=== PATIENT | female | born 1960 | race Caucasian/White ===

== ENCOUNTER 2020-01-21 15:18 | Outpatient (CLI) | payer OTHER, SELFPAY ==
--- NOTE | ~2020-01-21 | XR_ITS ---
EXAMINATION: XR thoracic spine 2V EXAM DATE: 01/21/2020 15:55 INDICATION: Left lateral costochondral junction pain radiating to the back. TECHNIQUE: Frontal and lateral projections of the thoracic spine as well as lateral swimmers projecti on of the upper thoracic spine for interpretation. There is no prior study for comparison. FINDINGS: There is moderate thoracolumbar dextroscoliosis. Mild thoracic disc disease. The vertebra l bodies are aligned in the AP dimension. Vertebral body heights are maintained. No endplate erosive change. Paraspinal soft tissue is unremarkable. IMPRESSION: 1. Mild thoracic spondylosis. 2. Moderate thoracolumbar dextroscoliosis. Reviewed, dictated and finalized at location A.
--- NOTE | ~2020-01-21 | XR_ITS ---
EXAMINATION: XR chest 2V EXAM DATE: 01/21/2020 15:56 INDICATION: Left costochondral junction pain. TECHNIQUE: Frontal and lateral projections of the chest obtained and reviewed. There are no prior maria t dies for comparison. FINDINGS: The lungs are clear. There are no pleural effusions. The cardiomediastinal silhouette is within normal limits. There is no pneumothorax suspected. The bones and soft tissues are unremarkab le. Moderate thoracolumbar dextroscoliosis. The ribs are unremarkable. IMPRESSION: No acute cardiopulmonary findings. Reviewed, dictated and finalized at location A.
== END 2020-01-21 15:19 | disposition home or self-care (01) ==
LOC: ANHIMG 15:26
PROVIDERS: PCP Internal Medicine; Visit Provider Internal Medicine
DX: M94.0 Chondrocostal junction syndrome [Tietze] (principal); M47.814 Spondylosis without myelopathy or radiculopathy, thoracic region; M41.85 Other forms of scoliosis, thoracolumbar region
CPT/HCPCS: 71046; 72070

== ENCOUNTER 2020-01-26 14:29 | Outpatient (CLI) | payer OTHER, SELFPAY ==
--- NOTE | ~2020-01-26 | CT_ITS ---
EXAMINATION: CT lung screening EXAM DATE: 01/26/2020 14:55 INDICATION: Personal history of nicotine dependence. TECHNIQUE: Spiral low dose CT of the chest without contrast. Axial, coronal and sagittal images were reviewed. The dose-length product (DLP) for this examination was 97.25 mGy-cm. The exposure was ta ilored according to patient size (auto mA exposure control), and iterative reconstruction (ASIR) was used as additional dose reduction technique. Comparison is made to prior examination from 02/20/2018. FINDINGS: The lungs are clear. There is mild emphysema. Tracheobronchial tree is patent. There is no mediastinal, hilar or axillary lymphadenopathy. There are no pleural or pericardial effusions. There is no pneumothorax. Heart normal in size. There is mild coronary arterial calcification, a rterial sclerosis. Left liver lobe cyst. There is mild thoracic spondylosis without osteoblastic or osteolytic lesions identified. IMPRESSION: Lung-RADS category 1, negative (<1%chance of malignancy); recommend continued LDCT screen ing in 1 year. Reviewed, dictated and finalized at location A. IMPRESSION: Lung-RADS category 1, negative (<1%chance of malignancy); recommend continued LDCT screening in 1 year.
== END 2020-01-26 14:30 | disposition home or self-care (01) ==
PROVIDERS: PCP Internal Medicine; Visit Provider Internal Medicine
DX: Z12.2 Encounter for screening for malignant neoplasm of respiratory organs (principal); Z87.891 Personal history of nicotine dependence
CPT/HCPCS: G0297

== ENCOUNTER 2020-02-04 12:08 | Outpatient (CLI) | payer OTHER, SELFPAY ==
--- NOTE | ~2020-02-04 | MR_ITS ---
EXAMINATION: MR thoracic spine wo con EXAM DATE: 02/04/2020 13:03 INDICATION: Radicular thoracic pain. TECHNIQUE: Multi-sequential, multiplanar MR images of the thoracic spine were obtained without contra st. Sagittal T1, T2, T2 fat saturation, axial T2 weighted images reviewed. There is no prior study for comparison. FINDINGS: Thoracolumbar dextroscoliosis. There is mild mid and lower thoracic disc disease with mild loss of disc heights and some small Schmorl's nodes. Some small disc protrusions, but only contributi ng to mild central canal stenosis at the T10-11 level. There is mild upper lumbar, moderate mid and l ower lumbar facet arthropathy. The vertebral bodies are aligned in the AP dimension. Paraspinal soft tissue is unremarkable. There are no suspicious marrow signal abnormalities. There is mild right-sided neural foraminal stenosis at mid thoracic levels. Lower thoracic levels described below. T9-10: Moderate right, no left neural foraminal stenosis. T10-11: Moderate right, mild left neural foraminal stenosis. Mild central canal stenosis. T11-12: No stenosis. IMPRESSION: 1. Moderate right neural foraminal stenosis T9-10 and T10-11. 2. Moderate lower lumbar facet arthropathy. 3. Lesser spondylosis above. Reviewed, dictated and finalized at location A.
== END 2020-02-04 12:09 | disposition home or self-care (01) ==
PROVIDERS: PCP Internal Medicine; Visit Provider Internal Medicine
DX: M54.6 Pain in thoracic spine (principal); M48.04 Spinal stenosis, thoracic region; M12.88 Other specific arthropathies, not elsewhere classified, other specified site; M47.816 Spondylosis without myelopathy or radiculopathy, lumbar region
CPT/HCPCS: 72146

== ENCOUNTER 2020-08-16 14:15 | Outpatient (CLI) | payer OTHER, SELFPAY ==
--- NOTE | ~2020-08-16 | MM_ITS ---
EXAMINATION: MM screening [facility] BI w jane HISTORY: Screening mammogram TECHNIQUE: Craniocaudal and mediolateral oblique 3-D tomosynthesis images were obtained and synthetic 2-D images were generated. CAD analysis was submitted and interpreted. COMPARISON: 06/27/2019, 07/05/2018, 06/28/2017 bilateral digital screening mammogram examinations BREAST PARENCHYMAL COMPOSITION: There are scattered areas of fibroglandular density. FINDINGS: There are scattered bilateral benign calcifications. There is no evidence of suspicious m ass, calcification, or architectural distortion to suggest malignancy in either breast. There has bee n no suspicious interval change. IMPRESSION: 1. No mammographic evidence of malignancy. 2. Recommend routine screening mammography in one year. BI-RADS Category 2: Benign finding(s) Reviewed, dictated and finalized at location A. 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
--- NOTE | ~2020-08-16 | DEXA_ITS ---
Bone Density Report Name: Kenyatta Siddiqui Age: 60 Sex: Female Ethnicity: White Date of : 1960 Indication: postmenopausal; Referring Provider: JOSE RIVERA Study: Bone densitometry was performed. Exam Date: August 16, 2020 Accession number: [id number] Bone Density: Region BMD T-score Z-score Classification AP Spine (L1-L4) 1.161 1.0 2.5 Normal Femoral Neck (Left) 0.768 -0.7 0.5 Normal Total Hip (Left) 0.990 0.4 1.3 Normal Total Hip Bilateral Avg 0.973 0.3 1.2 Normal Femoral Neck (Right) 0.696 -1.4 -0.1 Osteopenia Total Hip (Right) 0.956 0.1 1.1 Normal World Health Organization criteria for BMD impression classify patients as: Normal (T-score at or above -1.0), Osteopenia (T-score between -1.0 and -2.5), or Osteoporosis (T-score at or below -2.5). 10-year Fracture Risk(1): Major Osteoporotic Fracture 7.5% Hip Fracture 1.0% Reported Risk Factors: [place] (), Neck BMD=0.696, BMI=31.5, smoking (1) FRAX(R) Version 3.08. Fracture probability calculated for an untreated patient. Fracture probability may be lower if the patient has received treatment. Previous Exams: Region Exam Age BMD T-score BMD Change BMD Change Date g/cm2 vs Baseline vs Previous AP Spine(L1-L4) 08/16/2020 60 1.161 1.0 -0.052(-4.3%)# -0.005(-0.4%) 05/27/2015 54 1.166 1.1 -0.047(-3.9%)# -0.047(-3.9%)# 06/28/2011 50 1.213 1.5 Total Hip(Left) 08/16/2020 60 0.990 0.4 -0.126(-11.3%) -0.049(-4.7%)* 06/28/2017 56 1.039 0.8 -0.076(-6.9%)# -0.044(-4.0%)* 05/27/2015 54 1.083 1.2 -0.033(-2.9%)# -0.033(-2.9%)# 06/28/2011 50 1.115 1.4 Total Hip(Right) 08/16/2020 60 0.956 0.1 -0.073(-7.1%)# -0.030(-3.1%)* 06/28/2017 56 0.986 0.4 -0.042(-4.1%)# -0.007(-0.7%) 05/27/2015 54 0.993 0.4 -0.035(-3.4%)# -0.035(-3.4%)# 06/28/2011 50 1.029 0.7 *Denotes significance at 95% confidence level, LSC for AP Spine = 0.022 g/cm2, LSC for Total Hip = 0.027 g/cm2 Clinical Information Provided by Patient: Smokes Has used the following medications: Vitamin D, Calcium Patient maximum height was 62.5 Menopause Age: 57 Does not regularly consume dairy products Drinks caffeinated beverages Onset of menses at age 11 Number of children 2 Impression: There is hypertrophic degenerative change of the lumbar spine, which results in higher than expected spine bone mineral density measurements. These spine BMD a
== END 2020-08-16 14:16 | disposition home or self-care (01) ==
LOC: ANHIMG 14:18
PROVIDERS: PCP Internal Medicine; Visit Provider Obstetrics & Gynecology Gynecology
DX: Z12.31 Encounter for screening mammogram for malignant neoplasm of breast (principal); Z78.0 Asymptomatic menopausal state; M85.851 Other specified disorders of bone density and structure, right thigh
CPT/HCPCS: 77063; 77067; 77080

== ENCOUNTER 2021-04-22 16:02 | Outpatient (CLI) | payer OTHER, SELFPAY ==
--- NOTE | ~2021-04-22 | CT_ITS ---
EXAMINATION: CT lung screening DATE: 04/22/2021 16:33 INDICATION: Personal history of tobacco dependence, current smoker with 35 pack year history TECHNIQUE: Computed tomography (CT) of the chest was performed without intravenous contrast. The dose -length product (DLP) was 172.27 mGy-cm. 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 COMPARISON: 01/26/2020 FINDINGS: There is mild emphysema. No suspicious pulmonary nodules are identified. The lungs are free of acute opacities. There is no pleural effusion or pneumothorax. No pathologically enlarged thoraci c lymph nodes are identified. The heart size is normal. There is a trace pericardial effusion. Calcif ied coronary artery atherosclerosis is noted. There is moderate thoracic spondylosis. Cysts of the li shanika measure up to 13 mm in the left hepatic lobe. IMPRESSION: 1. Lung-RADS category 1: Negative. Continue annual screening with noncontrast low-dose chest CT in 12 months. Reviewed, dictated and finalized at location A. IMPRESSION: 1. Lung-RADS category 1: Negative. Continue annual screening with noncontrast l ow-dose chest CT in 12 months.
== END 2021-04-22 16:03 | disposition home or self-care (01) ==
PROVIDERS: PCP Internal Medicine; Visit Provider Internal Medicine
DX: Z12.2 Encounter for screening for malignant neoplasm of respiratory organs (principal); Z87.891 Personal history of nicotine dependence
CPT/HCPCS: 71271

== ENCOUNTER 2021-09-13 09:52 | Outpatient (CLI) | payer OTHER, SELFPAY ==
--- NOTE | ~2021-09-13 | MM_ITS ---
EXAMINATION: MM screening [facility] BI w jane HISTORY: Screening mammogram TECHNIQUE: Craniocaudal and mediolateral oblique 3-D tomosynthesis images were obtained and synthetic 2-D images were generated. CAD analysis was submitted and interpreted. COMPARISON: 08/16/2020, 07/07/2019, 07/05/2018 BREAST PARENCHYMAL COMPOSITION: There are scattered areas of fibroglandular density. FINDINGS: There is no evidence of suspicious mass, calcification, or architectural distortion to sugg est malignancy in either breast. There has been no suspicious interval change. IMPRESSION: 1. No mammographic evidence of malignancy. 2. Recommend routine screening mammography in one year. BI-RADS Category 1: Negative Reviewed, dictated and finalized at location A. 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
== END 2021-09-13 09:53 | disposition home or self-care (01) ==
LOC: ANHIMG 09:53
PROVIDERS: PCP Internal Medicine; Visit Provider Obstetrics & Gynecology Gynecology
DX: Z12.31 Encounter for screening mammogram for malignant neoplasm of breast (principal)
CPT/HCPCS: 77063; 77067

== ENCOUNTER 2022-12-01 13:16 | Emergency (ER) | payer OTHER, SELFPAY ==
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
[2022-12-01 13:31] VITALS: BP 145/81; PULSE 79; RESP 18; TEMP 37; O2SAT 100
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
== END 2022-12-01 14:23 | disposition home or self-care (01) ==
PROVIDERS: Emergency Provider Nurse Practitioner; PCP Internal Medicine
DX: S80.12XA Contusion of left lower leg, initial encounter (principal); S80.11XA Contusion of right lower leg, initial encounter; E78.5 Hyperlipidemia, unspecified; F17.290 Nicotine dependence, other tobacco product, uncomplicated; V89.2XXA Person injured in unspecified motor-vehicle accident, traffic, initial encounter
CPT/HCPCS: 73590; 99214; G0463

== ENCOUNTER 2022-12-10 13:23 | Outpatient (CLI) | payer OTHER, SELFPAY ==
--- NOTE | ~2022-12-10 | MR_ITS ---
MRI of the right hip Clinical history: Chronic pain Technique: Coronal T1-weighted, T2-weighted, and proton-density fat-sat images, and axial T1-weighted and proton-density fat-sat images were acquired through the pelvis. Coronal T2-weighted images and c oronal, axial, and sagittal proton-density fat-sat images were acquired through the right hip. Findings: There is no fracture, avascular necrosis, or transient osteoporosis of either hip. Bone mar row signals in the proximal femora and visualized pelvic bones are unremarkable. There is partially i sergio dextroscoliosis of the lumbar spine. Bilateral hip and bilateral SI joints are intact. No significant degenerative change identified. No j oint effusion. No right acetabular labral tear identified. Visualized musculature about the pelvis and right hip is unremarkable. No muscle atrophy or edema tanvi ntified. There is probable minimal greater trochanteric bursitis on the right side. No other fluid co llection or mass lesion evident. IMPRESSION: Minimal right greater trochanteric bursitis. Partially imaged dextroscoliosis of the lumbar spine. No other significant findings. Reviewed, dictated and finalized at location .
== END 2022-12-10 13:24 | disposition home or self-care (01) ==
PROVIDERS: PCP Internal Medicine; Visit Provider Internal Medicine
DX: M25.551 Pain in right hip (principal)
CPT/HCPCS: 73721

== ENCOUNTER 2023-01-22 08:54 | Outpatient (CLI) | payer OTHER, SELFPAY ==
--- NOTE | ~2023-01-22 | MM_ITS ---
EXAMINATION: MM screening contra [facility] BI w jane HISTORY: Screening mammogram TECHNIQUE: Craniocaudal and mediolateral oblique 3-D tomosynthesis images were obtained and synthetic 2-D images were generated. CAD analysis was submitted and interpreted. COMPARISON: 09/13/2021, 08/16/2020 BREAST PARENCHYMAL COMPOSITION: There are scattered areas of fibroglandular density. FINDINGS: A chronic stable focal asymmetry is present in left breast. No suspicious mass, calcificati on, or architectural distortion are identified in either breast to suggest malignancy. There has been no suspicious interval change. IMPRESSION: 1. No mammographic evidence of malignancy. 2. Recommend routine screening mammography in one year. BI-RADS Category 2: Benign finding(s). Reviewed, dictated and finalized at location A.
== END 2023-01-22 08:55 | disposition home or self-care (01) ==
LOC: ANHIMG 08:55
PROVIDERS: PCP Internal Medicine; Visit Provider Internal Medicine
DX: Z12.31 Encounter for screening mammogram for malignant neoplasm of breast (principal)
CPT/HCPCS: 77063; 77067

== ENCOUNTER 2023-03-16 00:34 | Day surgery (SDC) | payer OTHER, SELFPAY ==
[2023-03-08 09:42] VITALS: BMI 31.6
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
[2023-03-16 07:41] VITALS: BP 130/72; PULSE 64; RESP 20; TEMP 36.3; O2SAT 99; BMI 31.8
[2023-03-16] MEDS: LACTATED RINGERS 1,000 ML 150 ML IV CONT (07:48)
[2023-03-16 08:34] VITALS: BP 110/70; PULSE 73; RESP 14; O2SAT 100
[2023-03-16 08:44] VITALS: BP 123/54; PULSE 58; RESP 16; O2SAT 100
[2023-03-16 08:54] VITALS: BP 113/48; PULSE 62; RESP 18; O2SAT 100
== END 2023-03-16 09:05 | disposition home or self-care (01) ==
PROVIDERS: PCP Internal Medicine; Visit Provider Internal Medicine Gastroenterology
PROC: 0DJD8ZZ Inspection of Lower Intestinal Tract, Via Natural or Artificial Opening Endoscopic (ICD-10-PCS; CPT 45378; principal; 2023-03-16 08:30)
DX: Z12.11 Encounter for screening for malignant neoplasm of colon (principal); Z98.0 Intestinal bypass and anastomosis status; Z86.010 Personal history of colon polyps; Z90.49 Acquired absence of other specified parts of digestive tract; E78.5 Hyperlipidemia, unspecified; G47.33 Obstructive sleep apnea (adult) (pediatric); E55.9 Vitamin D deficiency, unspecified; F17.290 Nicotine dependence, other tobacco product, uncomplicated; E66.9 Obesity, unspecified; Z68.31 Body mass index [BMI] 31.0-31.9, adult
CPT/HCPCS: 45378; J2704; J7120

== ENCOUNTER 2023-09-18 10:18 | Outpatient (CLI) | payer OTHER, SELFPAY ==
--- NOTE | ~2023-09-18 | XR_ITS ---
EXAMINATION: XR lumbar spine 2-3V DATE: 09/18/2023 10:38 INDICATION: Left-sided low back pain. TECHNIQUE: 3 views of lumbar spine were obtained. COMPARISON: Lumbar spine radiographs 11/13/2014 FINDINGS: There is 22 degrees dextroscoliosis of thoracolumbar spine. There is 3 mm retrolisthesis of L2 on L3 and L3 on L4. There is mild chronic anterior wedging of L3 vertebral body. There is severel y decreased disc height from L1-L2 through L4-L5 and mildly decreased disc height at L5-S1. There is multilevel severe facet joint osteoarthritis. IMPRESSION: 1. Severe lumbar spondylosis, worsened from 11/13/2014. 2. Thoracolumbar dextroscoliosis. Reviewed, dictated and finalized at location E. [employer]
--- NOTE | ~2023-09-18 | XR_ITS ---
EXAMINATION: XR sacroiliac joints min 3V DATE: 09/18/2023 10:38 INDICATION: Left-sided low back pain. TECHNIQUE: 3 views of the sacroiliac joints were obtained. COMPARISON: None. FINDINGS: There is lumbar dextroscoliosis and severe spondylosis. No fracture. There is mild osteoart hritis of the sacroiliac joints and hip joints. IMPRESSION: 1. Mild osteoarthritis of the sacroiliac joints. Reviewed, dictated and finalized at location E. 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
== END 2023-09-18 10:19 | disposition home or self-care (01) ==
PROVIDERS: PCP Internal Medicine; Visit Provider Internal Medicine
DX: M54.9 Dorsalgia, unspecified (principal); M43.06 Spondylolysis, lumbar region; M41.85 Other forms of scoliosis, thoracolumbar region; M46.1 Sacroiliitis, not elsewhere classified
CPT/HCPCS: 72100; 72202

== ENCOUNTER 2023-12-18 13:32 | Outpatient (CLI) | payer OTHER, SELFPAY ==
--- NOTE | ~2023-12-18 | CT_ITS ---
EXAMINATION: CT lung screening DATE: 12/18/2023 13:53 INDICATION: Nicotine dependence TECHNIQUE: Computed tomography (CT) of the chest was performed without intravenous contrast. The dose -length product was 147.83 mGy-cm. Automated exposure control and iterative reconstruction technique were employed. COMPARISON: CT dated 04/22/2021 FINDINGS: Trace chronic pericardial effusion. No significant pleural effusion. Heart size normal. No thoracic adenopathy. Low-density lesions in the liver, most likely benign. The spleen, pancreas, adre nal glands are unremarkable. Nonobstructing left nephrolithiasis. No focal airspace consolidation. No endobronchial lesions. No new pulmonary nodules or masses. Moderate lower thoracic spondylosis. IMPRESSION: 1. Lung-RADS category 1: Negative. Continue annual screening with noncontrast low-dose chest CT in 12 months. Reviewed, dictated and finalized at location L. IMPRESSION: 1. Lung-RADS category 1: Negative. Continue annual screening with noncontrast l ow-dose chest CT in 12 months.
== END 2023-12-18 13:33 | disposition home or self-care (01) ==
PROVIDERS: PCP Internal Medicine; Visit Provider Internal Medicine
DX: Z12.2 Encounter for screening for malignant neoplasm of respiratory organs (principal); Z87.891 Personal history of nicotine dependence
CPT/HCPCS: 71271

== ENCOUNTER 2024-04-30 13:45 | Outpatient (CLI) | payer OTHER, SELFPAY ==
--- NOTE | ~2024-04-30 | MM_ITS ---
EXAMINATION: MM screening bartolo BI w jane HISTORY: Screening TECHNIQUE: Craniocaudal and mediolateral oblique 3-D tomosynthesis images were obtained and synthetic 2-D images were generated. CAD analysis was submitted and interpreted. COMPARISON: Comparison to multiple prior studies sequentially, with oldest reviewed study dated 01/2017. BREAST PARENCHYMAL COMPOSITION: Not dense: There are scattered areas of fibroglandular density. FINDINGS: There is no evidence of suspicious mass, calcification, or architectural distortion to sugg est malignancy in either breast. There has been no suspicious interval change. IMPRESSION: 1. No mammographic evidence of malignancy. 2. Recommend routine screening mammography in one year. BI-RADS Category 1: Negative Reviewed, dictated and finalized at location B.
== END 2024-04-30 13:46 | disposition home or self-care (01) ==
LOC: ANHIMG 13:46
PROVIDERS: PCP Internal Medicine; Visit Provider Internal Medicine
DX: Z12.31 Encounter for screening mammogram for malignant neoplasm of breast (principal)
CPT/HCPCS: 77063; 77067

== ENCOUNTER 2024-04-30 15:10 | Outpatient (CLI) | payer OTHER, SELFPAY ==
--- NOTE | ~2024-04-30 | XR_ITS ---
EXAMINATION: XR chest 2V 04/30/2024 15:25 INDICATION: Shortness of breath and dyspnea PROCEDURE: 2 view chest COMPARISON: 01/21/2020 FINDINGS: The lungs are clear. The cardiomediastinal silhouette is within normal limits. There are no pleural effusions. There is no pneumothorax suspected. There is scoliosis. IMPRESSION: 1: NO ACUTE CARDIOPULMONARY DISEASE. Reviewed, dictated and finalized at location B.
== END 2024-04-30 15:11 | disposition home or self-care (01) ==
LOC: ANHIMG 15:11
PROVIDERS: PCP Internal Medicine; Visit Provider Internal Medicine
DX: R06.02 Shortness of breath (principal); R06.09 Other forms of dyspnea
CPT/HCPCS: 71046; 77063; 77067

== ENCOUNTER 2024-05-07 08:58 | Outpatient (CLI) | payer OTHER, SELFPAY ==
--- NOTE | 2024-05-13 14:08 | P.PCNPFT_ITS ---
PFT Procedure Performed PFT Procedure Performed Spirometry with Pre/Post Bronchodilator Plethysmography (Lung Vol) Diffusing Cap (DLCO) Flow Vol Loop PFT Interpretation DOS: 05/07/2024 REQUESTING: Dr. Martin Urbina REASON FOR TESTING: dyspnea PULMONARY FUNCTION TESTS Results are reliable and reproducible. Repeatability of spirometry FEV1 maneuver pre and post bronchodilator is Grade A. Spirometry: The pre-bronchodilator FEV1 is 1.92 L, 88%, normal. The pre- bronchodilator FVC is 3.12 L, 113%, normal. The FEV1/FVC ratio is 61%, decreased, consistent with airflow obstruction. After bronchodilator, the FEV1 is 2.13 L, 98%, +11%, normal. The FVC post-bronchodilator is 3.24 L, 117%, +4%, normal. The FEV1/FVC ratio is 66%, below normal, consistent with airflow obstruction. Lung volumes: The total lung capacity is 4.96 L, 108%, normal. The residual volume is 1.84 L, 97%, normal. The RV/TLC is 37%, normal. Airway resistance is increased. Diffusion: DLCO is 19.1, 95%, normal. The DLCO/VA is 4.29 L, 95%, normal. Flow volume loop: The flow volume loop shows mild coving of the expiratory limb. IMPRESSION: This study shows mild airflow obstruction without significant response to bronchodilator, normal lung volumes and normal diffusion. Lack of response to bronchodilator should not preclude use if clinically indicated. There are no prior studies to compare. Aracely Ward MD
== END 2024-05-07 08:59 | disposition home or self-care (01) ==
LOC: ANHPFT 08:59
PROVIDERS: PCP Internal Medicine; Visit Provider Internal Medicine
DX: R06.09 Other forms of dyspnea (principal); R06.02 Shortness of breath
CPT/HCPCS: 94060; 94726; 94729

== ENCOUNTER 2024-12-20 10:57 | Outpatient (CLI) | payer OTHER, SELFPAY ==
--- NOTE | ~2024-12-20 | CT_ITS ---
EXAMINATION: CT lung screening DATE: 12/20/2024 11:39 INDICATION: Personal history of nicotine dependence TECHNIQUE: Computed tomography (CT) of the chest was performed without intravenous contrast. The dose -length product was 75.85 mGy-cm. Automated exposure control and iterative reconstruction technique w ere employed. COMPARISON: CT dated 12/18/2023 FINDINGS: Small pericardial effusion. Heart size normal. No significant pleural effusion. No thoracic lymphadenopathy. There is atherosclerosis of the aorta and coronary arteries. No endobronchial lesio ns. No pneumothorax. There is a 1-2 mm left upper lobe nodule. There is scoliosis. No acute osseous a bnormality. No focal lytic or blastic lesions. There is severe lower thoracic and upper lumbar spondy losis. IMPRESSION: 1. Lung-RADS category 2: Benign appearance or behavior. Continue annual screening with noncontrast lo w-dose chest CT in 12 months. Reviewed, dictated and finalized at location A. IMPRESSION: 1. Lung-RADS category 2: Benign appearance or behavior. Continue annual screeni ng with noncontrast low-dose chest CT in 12 months.
--- OUTSIDE RECORDS SUMMARY | 2024-12-20 11:01 | XMS_ITS | Clinical Summary ---
Author Organization 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 Gender Identity Female 11/25/2021 10:53 AM INDUSTRIAL PIPEFITTER JOURNEYMAN Sexual Orientation Straight 11/25/2021 10 :53 AM INDUSTRIAL PIPEFITTER JOURNEYMAN Plan of Treatment Health Maintenance Due Date Last Done Comments Cervical Cancer Screening Pap Smear (Age 30 to 64) Every 3 Years 1960 Colorectal Cancer Screening Colonoscopy (10 Years) 1960 Annual Physical 1963 Hepatitis C 1978 DTaP, Tdap and Td Vaccines (1 - Tdap) 1979 Cervical Cancer Screening Pap with HPV Testing (Age 30 to 64) Every 5 Years 1990 Cervical Cancer Screening with HPV 1990 Mammogram Screening 2000 Zoster Vaccines (1 of 2) 2010 COVID-19 Vaccine ( season) 2024 09/28/2021, 01/11/2021, 12/19/2020 Influenza Adult (#1) 2024 07/27/2020, 07/04/2019, 07/04/2018, Additional history exists RSV Immunization or 60+ Years (1 - 1-dose 75+ series) 2035 Meningococcal B Vaccine Aged Out No l onger eligible based on patient's age to complete this topic Meningococcal Vaccine Aged Out No annalise kali eligible based on patient's age to complete this topic Pneumococcal Vaccine: Pediatrics (0 to 5 Years) and At-Risk Patients (6 to 64 Years) Aged Out No longer eligible based on patient's age to complete this topic RSV Immunizations Under 20 Months Aged Out No longer eligible based on patient's age to complete this topic Insurance [employer] Care Teams Housecleaner Relationship Specialty Start Date End Date Martin Urbina MD [address] [place] [address] PCP - General INTERNAL MEDICINE 11/10/21
--- OUTSIDE RECORDS SUMMARY | 2024-12-20 11:01 | XMS_ITS | Clinical Summary ---
Author Organization [facility] [address] Address [address] [place] [address] Care Team Providers Care Silverware Cleaner Name Role Phone Martin Urbina MD Primary Care Provider [phone] Allergies No known active allergies Medications meclizine (ANTIVERT) 25 mg tablet Take 1 tablet (25 mg total) by mouth 3 (three) times a day as needed for dizziness 30 tablet 9 Active diazePAM (VALIUM) 2 mg tablet Take 1-2 tablets (2-4 mg total) by mouth 3 (three) times a day as needed (Vertigo) 10 tablet 9 Active Social History Tobacco Use Types Packs/Day Years Used Date Smoking Tobacco: Every Day Cigarettes Personal Safety Answer Date Recorded Getting School Help Needed Not on file 11/24 Comments No Sex and Gender Information Value Date Recorded Sex Assigned at Not on file Legal Sex Female 5:13 PM CDT Gender Identity Not on file Sexual Orientation Not on file Obstetrics History Last Filed Vital Signs Vital Sign Reading Time Taken Comments Blood Pressure 108/62 05/07/2024 12:14 PM CDT Pulse 81 12/16/2018 5:00 PM CDT Temperature 36.7 C (98.1 F) 12/16/2018 11:18 AM CDT Respiratory Rate 16 12/16/2018 5:00 PM CDT Oxygen Saturation 96% 12/16/2018 5:00 PM CDT Inhaled Oxygen Concentration - - Weight 76.7 kg (169 lb) 12/16/2018 11:18 AM CDT Height 160 cm (5' 3 ) 12/16/2018 11:18 AM CDT Body Mass Index 29.94 12/16/2018 11:18 AM CDT Plan of Treatment Health Maintenance Due Date Last Done Comments Breast Cancer Screening-Mammogram 1960 Cervical Cancer Screening 1960 Colon Cancer Screening-Colonoscopy 1960 Depression Screening 1960 Hepatitis C Screening 1960 DTaP/Tdap/Td Vaccine (1 - Tdap) 1971 Hepatitis B Screening 1978 Regular Well Visit/Exam 18-64 1978 Pneumococcal vaccine <65 (1 of 2 - PCV) 1979 Zoster Vaccine (1 of 2) 2010 Covid-19 Vaccine (4 - 2023-2 5 season) 2024 09/28/2021, 01/11/2021, 12/19/2020 Influenza Vaccine (#1) 2024 , 07/04/2019, 07/04/2018, Additional history exists Insurance [employer] [facility] [id number] [facility] [id number] Care Teams Silverware Cleaner Relationship Specialty Start Date End Date Martin Urbina MD [address] INTERNAL MEDICINE [place], [place] [id number] PCP - General Internal Medicine 12/10/18
--- OUTSIDE RECORDS SUMMARY | 2024-12-20 11:01 | XMS_ITS | Referral Summary ---
Author Organization [facility] [address] Address [address] [place] [address] Care Team Providers Care Director Rehabilitation Program Name Role Phone Martin Urbina MD Primary Care Provider [phone] Allergies No known active allergies Medications meclizine [...] on file Sexual Orientation Not on file Last Filed Vital Signs Vital Sign Reading [...] 12/16/2018 11:18 AM CDT Plan of Treatment Not on file [facility] [id number] Care Teams Director Rehabilitation Program Relationship Specialty Start Date End Date Martin Urbina MD [address] [facility] [address] [place] [address] PCP - General Internal Medicine 12/10/18
--- OUTSIDE RECORDS SUMMARY | 2024-12-20 11:01 | XMS_ITS | Continuity of Care Document ---
Author Organization [facility] Address [address] [place] [address] Phone Care Team Providers Care Stock Pitcher Name Role Phone Agudelo OD, Luke Unavailable Unavailable Advance Directives Directive Yes / No Effective Date File Name No Information Encounters Encounter Description Practice Location Reason(s) For Visit Diagnoses Date Provider Providers Copied on Encounter [facility], [address], [place], [place], [id number], [place] tel:[phone] [facility] No Information Jul- 2-200 0 Agudelo OD Luke. [address] , [address], [place], [address], [place]. tel:[phone] Family History Family Member Type Diagnosis Age At Onset No Information Payers Payer name Insurance type Covered alliance party ID Authoriza tion(s) No Information Social History Type Description Quantity Date Captured Comments Sex Female Smoking Status No Information Chief Complaint And Reason For Visit No Information Reason For Referral Reason For Referral No Information History Of Present Illness Encounter Date Complaint History Of Prese nt Illness No Information Functional Status Date Functional Assessmen t No Information Instructions Date Instruction Additional Infor mation No Information Assessments Type Assessment Date No Information Patient Care Teams Name Effective Dates (start - stop) Status Members No Information
--- OUTSIDE RECORDS SUMMARY | 2024-12-20 11:01 | XMS_ITS | Clinical Summary ---
Author Organization [facility] Address [address], [address] [address] Phone Care Team Providers Care Fireworks Inspector Name Role Phone Martin Urbina MD Primary Care Provider [phone] Sofía Godinez MD Unavailable Allergies Active Allergy Reactions Criticality Noted Date Comments Morphine Nausea 01/29/2018 And vomiting Medications MULTIPLE VITAMIN PO Take 1 Tab by mouth daily. Active [place]-3 Fatty Acids (FISH OIL PO) Take 1 Cap by mouth daily. Active Calcium-Magnesiu m-Vitamin D (CALCIUM 500 PO) Take 1 Tab by mouth daily. Active rosuvastatin (CRESTOR) 20 MG Tablet Take 20 mg by mouth daily. Active Family History Medical History Relation Name Comments Hypertension Mother Diabetes Sister Relation Name Status Comments Father Mother Sister Social History Tobacco Use Types Packs/Day Years Used Date Smoking Tobacco: Former Cigarettes 1 30 0 01/30/1988 - 01/29/2018 Smokeless Tobacco: Never Comments:quit 03/11 Alcohol Use Standard Drinks/Week Comments Yes 0 (1 standard drink = 0.6 oz pur e alcohol) 30 drinks a week Comments Unknown Sex and Gender Information Value Date Recorded Sex Assigned at Not on file Legal Sex Female 8:46 PM CDT Gender Identity Not on file Sexual Orientation Not on file Occupation Industry Job Start Date Job End Date Works for [employer] Not on file Not on file Not on file Last Filed Vital Signs Vital Sign Reading Time Taken Comments Blood Pressure 120/64 02/22/2018 12:54 PM CDT Pulse 64 02/22/2018 12:54 PM CDT Temperature 36 C (96.8 F) 02/22/2018 12:54 PM CDT Respiratory Rate 14 02/22/2018 12:54 PM CDT Oxygen Saturation 100% 02/22/2018 12:54 PM CDT Inhaled Oxygen Concentration - - Weight 73.9 kg (163 lb) 01/29/2018 7:00 AM CDT Height 160 cm (5' 3 ) 01/29/2018 7:00 AM CDT Body Mass Index 28.87 01/29/2018 7:00 AM CDT Plan of Treatment Health Maintenance Due Date Last Done Comments Hepatitis C Virus (HCV) Screening 1960 TdaP Immunization 1960 Pap Smear 1981 Cervical Cancer Screening (CCS) 1990 HPV/Cotest 1990 Cologuard 2010 Immunochemical Fecal Occult Blood 2010 Mammogram 2010 Pneumococcal Immunization (5 0+ years) (1 of 1 - PCV) 2010 Zoster Immunization (1 of 2) 2010 Colonoscopy 02/22/2023 02/22/2018 Colorectal Cancer Screening 02/22/2023 Influenza Immunization (#1) 2024 SARS-COV-2 Immunization ( - season) 2024 Respiratory Syncytial Virus (RSV) Immunization (Adult) (1 - 1-dose 75+ series) 2035 02/22/2018 Hepatitis B Immunization Aged Out No longer eligible based on patient's age to complete this topic Meningococcal Immunization (ACWY) Aged Out No longer eligible based on patient's age to complete this topic Pneumococcal Immunization Combined Aged Out No longer eligible based on patient's age to complete this topic Rotavirus Immunization Aged Out No lo nger eligible based on patient's age to complete this topic Insurance * Guarantor: Kenyatta Siddiqui Account Type Relation to Patient Date of Phone Billing Address Personal/Family Self 1960 [phone] (Work) [address] [place] [address] [facility] Care Teams Fireworks Inspector Relationship Specialty Start Date End Date Martin Urbina MD [address] [place] [address] PCP - General Internal Medicine 06/28/17 Sofía Godinez MD [address] [address] Obstetrics & Gynecology 06/28/17
== END 2024-12-20 10:58 | disposition home or self-care (01) ==
PROVIDERS: PCP Internal Medicine; Visit Provider Internal Medicine
DX: Z12.2 Encounter for screening for malignant neoplasm of respiratory organs (principal); Z87.891 Personal history of nicotine dependence
CPT/HCPCS: 71271

== ENCOUNTER 2025-06-11 12:13 | Outpatient (CLI) | payer OTHER, SELFPAY ==
--- NOTE | ~2025-06-11 | MM_ITS ---
EXAMINATION: MM screening bartolo BI w jane HISTORY: Screening TECHNIQUE: Craniocaudal and mediolateral oblique 3-D tomosynthesis images were obtained and synthetic 2-D images were generated. CAD analysis was submitted and interpreted. COMPARISON: 01/22/2023 BREAST PARENCHYMAL COMPOSITION: There are scattered areas of fibroglandular density. FINDINGS: There is no evidence of suspicious mass, calcification, or architectural distortion to suggest malignancy. There has been no suspicious interval change. IMPRESSION: 1. No mammographic evidence of malignancy. Recommend routine screening mammography in one year. BI-RADS Category 2: Benign finding(s) Reviewed, dictated and finalized at location Q. IMPRESSION: 1. No mammographic evidence of malignancy. Recommend routine screening mammogra phy in one year. BI-RADS Category 2: Benign finding(s)
--- OUTSIDE RECORDS SUMMARY | 2025-06-11 12:16 | XMS_ITS | Clinical Summary ---
Author Organization [facility] [address] Address [address] [place] [address] Care Team Providers Care Knitting Machine Tender Name Role Phone Martin Urbina MD Primary Care Provider [phone] Allergies No known active allergies Medications meclizine [...] 11:18 AM CDT Height 160 cm (5' 3) 12/16/2018 11:18 AM CDT Body Mass Index [...] of 2) 2010 Covid-19 Vaccine (4 - 2024-2 6 season) 2025 09/28/2021, 01/11/2021, 12/19/2020 Influenza Vaccine (#1) 2025 , 07/04/2019, 07/04/2018, Additional history exists Insurance [employer] [facility] [id number] [facility] [id number] Care Teams Knitting Machine Tender Relationship Specialty Start Date End Date Martin Urbina MD [address] [place] [address] PCP - General Internal Medicine 12/10/18
--- OUTSIDE RECORDS SUMMARY | 2025-06-11 12:16 | XMS_ITS | Clinical Summary ---
Author Organization [facility] Address [address] [place] [address] Care Team Providers Care Hammersmith Helper Name Role Phone Martin Urbina MD Primary Care Provider [phone] Social History Tobacco Use Types Packs/Day Years Used Date Smoking Tobacco: Never Assessed Comments Unknown Sex and Gender Information Value Date Recorded Sex Assigned at Not on file Legal Sex Female 7:54 AM RISK AND INSURANCE CONSULTANT Gender Identity Female 11/25/2021 10:53 AM RISK AND INSURANCE CONSULTANT Sexual Orientation Straight 11/25/2021 10 :53 AM RISK AND INSURANCE CONSULTANT Plan of Treatment Health Maintenance Due Date Last Done Comments Cervical Cancer Screening Pa p Smear (Age 30 to 64) Every 3 Years 1960 Colorectal Cancer Screening Colonoscopy (10 Years) 1960 Annual Physical 1963 Hepatitis C 1978 DTaP, Tdap and Td Vaccines ( 1 - Tdap) 1979 Cervical Cancer Screening Pa p with HPV Testing (Age 30 to 64) Every 5 Years 1990 Cervical Cancer Screening wi th HPV 1990 Mammogram Screening 2000 Pneumococcal Vaccine: 50+ Years (1 of 1 - PCV) 2010 Zoster Vaccines (1 of 2) 2010 COVID-19 Vaccine ( - 2024-2 6 season) 2025 09/28/2021, 01/11/2021, 12/19/2020 RSV Immunization or 60+ Years (1 - 1-dose 75+ series) 2035 Meningococcal B Vaccine Aged Out No l onger eligible based on patient's age to complete this topic Meningococcal Vaccine Aged Out No annalise kali eligible based on patient's age to complete this topic RSV Immunizations Under 20 Months Aged Out No longer eligible b ased on patient's age to complete this topic Insurance [employer] Care Teams Hammersmith Helper Relationship Specialty Start Date End Date Martin Urbina MD [address] [place] [address] PCP - General INTERNAL MEDICINE 11/10/21
== END 2025-06-11 12:14 | disposition home or self-care (01) ==
LOC: ANHFOHIMG 12:14
PROVIDERS: PCP Internal Medicine; Visit Provider Internal Medicine
DX: Z12.31 Encounter for screening mammogram for malignant neoplasm of breast (principal)
CPT/HCPCS: 77063; 77067